=== PATIENT | female | born 1980 | race Caucasian/White ===

== ENCOUNTER 2018-05-01 06:03 | Day surgery (SDC) | payer OTHER ==
[~2018-05-01 06:03] MED LIST: BUPIVAC MPF-EPI 0.5%-1:200000 30 ML VIAL. ONE
[2018-05-01] MEDS ORDERED: IV RINGERS,LACTATED 1000ML 1,000 ML IV SCH (07:00)
[2018-05-01] MEDS ORDERED: LIDOCAINE 1% PF 2 ML VIAL. ID PRN (07:00)
[2018-05-01] MEDS ORDERED: ONDANSETRON PF 4 MG/2 ML VIAL. IV PRN (07:00)
[2018-05-01] MEDS ORDERED: MORPHINE SULFATE 2 MG/ML VIAL. IV PRN (07:00)
[2018-05-01] MEDS ORDERED: fentaNYL PF VIAL 100 MCG/2 ML VIAL IV PRN (07:00)
[2018-05-01] MEDS ORDERED: PROCHLORPERAZINE 10 MG/2 ML VIAL. IV PRN (07:00)
[2018-05-01] MEDS ORDERED: HYDROmorphone 2 MG/ML VIAL IV PRN (07:00)
[2018-05-01 07:02] LABS: U PREG PATIENT NEGATIVE (NEG)
[2018-05-01] MEDS ORDERED: METHYLENE BLUE 1% 10 ML VIAL. ONE (07:32)
[2018-05-01] MEDS ORDERED: fentaNYL PF VIAL 100 MCG/2 ML VIAL ONE ×4 (08:22→09:43)
[2018-05-01] MEDS ORDERED: NEOSTIGMINE METHYLSULFATE 5 MG/5 ML SYRINGE. ONE (08:23)
[2018-05-01] MEDS ORDERED: GLYCOPYRROLATE 1 MG/5 ML VIAL. ONE (08:23)
[2018-05-01] MEDS ORDERED: MIDAZOLAM HCL/PF 2 MG/2 ML VIAL. ONE (08:39)
[2018-05-01] MEDS ORDERED: DEXAMETHASONE SOD PHOS 20 MG/5 ML VIAL. ONE (08:39)
[2018-05-01] MEDS ORDERED: PROPOFOL 20 ML IV ONE (08:39)
[2018-05-01] MEDS ORDERED: ONDANSETRON PF 4 MG/2 ML VIAL. ONE (08:39)
[2018-05-01] MEDS ORDERED: ROCURONIUM 50 MG/5 ML VIAL. ONE (08:40)
[2018-05-01] MEDS: fentaNYL PF VIAL 100 MCG/2 ML VIAL IV PRN ×2 (09:29→09:37)
[2018-05-01] MEDS ORDERED: NAPR-514 PO (09:36)
[2018-05-01] MEDS ORDERED: OXYC-323 PO (09:36)
[2018-05-01] MEDS ORDERED: oxyCODONE/APAP 5/325 1 TAB TABLET PO ONE (10:00)
[2018-05-01 10:35] VITALS: BP 108/64
--- NOTE | 2018-05-02 19:08 | PATHOLOGY ---
[facility] Accession Number: [id number] . 01 Material submitted: . OVARIAN CYST WALL . 01 Clinician provided ICD-10: N83.00 . 01 Clinical history: . Ovarian cyst . 02 Diagnosis: Segments of ovarian tissue, laparoscopic ovarian cystectomy: - Follicular cyst with regressive changes. . 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 02 Comment: There is no evidence of malignancy. . 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 02 Electronically signed: . Salvatore Turpin MD, Pathologist NPI- [id number] . 01 Gross description: . The specimen is received in formalin, labeled "Kim Graciela, cyst wall" and consists of 3 segments of thin cyst wall measuring between 0.8 x 0.5 x 0.1 cm and 2.8 x 2.5 x 0.1 cm. The cyst lining is rajan and smooth without papillary excrescences. The specimen is entirely submitted in A1-A2. (SDY; 05/01/2018) SYU/SYU . 02 Microscopic: . Y . 02 Pathologist provided ICD-10: N83.00 . 02 CPT . 723659 Specimen Comment: A courtesy copy of this report has been sent to Specimen Comment: [phone]. Specimen Comment: Report sent to Performed at: 01 [facility] [address] [facility] [address], [place] [id number] MD Yuri Heaton MD Phone: [phone] Performed at: 02 [facility] [address] [place], [place] [id number] MD Salvatore Turpin MD Phone: [phone]
--- NOTE | 2018-05-30 06:32 | PDOC ---
BRIEF OPERATIVE NOTE Date: May 01, 2018 Pre-Op Diagnosis Ovarian cyst Post-Op Diagnosis Left ovarian cyst Procedure Performed Lap L ovarian cystectomy Surgeon Sky Anesthesia Type: General Blood Loss 20cc Specimens Obtained cyst and cyst wall Complications None SHERICE NUNN MD May 30, 2018 06:32
--- NOTE | 2018-05-30 07:26 | OP ---
DATE OF SURGERY: 05/01/2018 PREOPERATIVE DIAGNOSIS: Ovarian cyst. POSTOPERATIVE DIAGNOSIS: Left ovarian cyst. PROCEDURE: Laparoscopic bilateral cystectomy. SURGEON: Jeremiah Swanson MD. VALVE FITTER: None. ANESTHESIA: General. ESTIMATED BLOOD LOSS: Less than 20 mL. FLUIDS: Crystalloid. SPECIMENS: Ovarian cyst and cyst wall. COMPLICATIONS: None. CONDITION: Stable. DESCRIPTION OF PROCEDURE: After risks, benefits, indications, alternatives were discussed in detail with the patient, the patient was brought to the OR theater, placed in dorsal lithotomy position in Lam stirrups. After adequate general anesthesia, the patient was prepped and draped in usual sterile manner. Uterine manipulator was placed in usual fashion. Attention was then turned to the anterior abdominal wall. A small infraumbilical incision made sharply with a scalpel. Through this incision via Visiport, a 5-mm disposable trocar was placed. Two lateral trocars were placed on either side of this after infiltrating the area with 0.5% Marcaine with epinephrine. These incisions were made. These two trocars were placed with direct visualization. There was a large 8-10 cm left ovarian cyst visualized. A cystectomy was performed in the usual manner using laparoscopic graspers first to create a ridge in the cyst wall, then to grab the cyst capsule with twisting and turning motion, removing the majority of the capsule. The ovary was significantly large. So, using the INSORB device, the edges were cauterized and 20-30% of the ovarian tissue was also removed with elements of the cyst wall. These were taken out through the trocar without any difficulties. Using the EnSeal device, the edges of the opening were cauterized for good hemostasis. The suction oil well shooter was used to assess hemostasis and remove any blood or debris from the cul-de-sac. The procedure was terminated. All laparoscopic instruments were removed. The pneumoperitoneum was allowed to dissipate. All trocar sleeves were removed. The incision was reapproximated with 4-0 Monocryl in subcuticular fashion. The infraumbilical incision was also infiltrated with 0.5% Marcaine with epinephrine. The uterine manipulator was removed. Sponge, needle and instrument counts were correct x 2 per nursing staff. The patient went to postop anesthesia recovery in stable condition. JERMEIAH SWANSON MD DR: VELIA/kenneth JOB#: [id number] / [id number]
== END 2018-05-01 10:35 | disposition home or self-care (01) ==
LOC: SURG 06:03
PROVIDERS: ATTEND Specialist
DX: N83.01 Follicular cyst of right ovary (principal); Z90.49 Acquired absence of other specified parts of digestive tract; Z90.721 Acquired absence of ovaries, unilateral; Z88.6 Allergy status to analgesic agent; Z98.890 Other specified postprocedural states; Z79.899 Other long term (current) drug therapy
CPT/HCPCS: 58662; 81025; 88305; A7015; J1100; J2250; J2405; J2704; J2710; J3010; J3490; J7120; Q9968